=== PATIENT | female | born 1965 | race Caucasian/White ===

== ENCOUNTER 2024-01-02 13:35 | Emergency (ER) | payer BC, SELFPAY ==
[2024-01-02 13:59] VITALS: BP 130/76
[2024-01-02 14:20] LABS: % Eosinophils 1.9 % (0-6); % Immature Granulocytes 0.5 % (0-0.5); % Lymphocytes 29.3 % (20.5-51.1); % Monocytes 10.5 % (1.7-9.3); % Neutrophils 56.8 % (42.2-75.2); Absolute Basophils 0.1 10^3/uL (0-0.2); Absolute Eosinophils 0.2 10^3/uL (0-0.7); Absolute Lymphocytes 2.3 10^3/uL (1.2-3.4); Absolute Monocytes 0.8 10^3/uL (0.1-0.6); Absolute Neutrophils 4.4 10^3/uL (1.4-6.5); Hematocrit 41.3 % (37.0-47.0); Hemoglobin 13.6 g/dL (12.0-16.0); Mean Corp Hgb Conc. 32.9 g/dL (33.0-37.0); Mean Corpuscular Hgb 27.9 pg (27.0-31.0); Mean Corpuscular Volume 84.6 fL (81.0-99.0); Mean Platelet Volume 10.9 fL (7.4-10.4); Nucleated Red Blood Cells % 0 %; Platelet Count 246 10^3/uL (130-400); Red Blood Cell Count 4.88 10^6/uL (4.20-5.40); Red Cell Dist. Width 14.6 % (11.5-14.5); White Blood Cell Count 7.8 10^3/uL (4.8-10.8)
[2024-01-02 14:41] LABS: ALT (SGPT) 19 U/L (0-35); AST (SGOT) 31 U/L (14-36); Albumin 4.4 g/dl (3.5-5.0); Alkaline Phosphatase 97 U/L (38-126); Blood Urea Nitrogen 22 mg/dl (7-17); Calcium 9.9 mg/dl (8.4-10.2); Carbon Dioxide 24 mmol/L (22-30); Chloride 109 mmol/L (98-107); Glucose 91 mg/dl (70-99); Potassium 5.1 mmol/L (3.5-5.1); Sodium 141 mmol/L (135-145); Total Bilirubin 0.8 mg/dl (0.2-1.3); Total Protein 7.7 g/dl (6.3-8.2); eGFR > 60.00
[2024-01-02 14:47] LABS: Troponin I < 0.012 ng/ml
[2024-01-02 15:42] VITALS: BMI 33.8
[2024-01-02 15:52] VITALS: BP 133/65
--- NOTE | 2024-01-02 15:56 | ED.GENMED ---
History of Present Illness
General
Chief Complaint: Dizziness
Source: patient
Exam Limitations: none
Time Seen by Provider: 01/02/24 15:20
Travel History
Have you had any contact with someone who has COVID-19?: No
Do you have any symptoms of coronavirus? Fever > 100 degrees, chills, cough, shortness of breath, sore throat, loss of taste or smell, muscle aches, or headache?: No
History of Present Illness
History of Present Illness:
Patient has had chronic vertigo issues. However some disequilibrium frequently since October that is slightly different. It occurs frequently 3-4 times per week. Nonpositional. No other neurologic symptoms. But she is primarily here today
because she has been having ongoing intermittent chest pain with radiation to the back into the jaw. That is not exertional. Today's episode started this morning this. Persistent throughout the day. No shortness of breath or diaphoresis. No
other usual headache. No other neurologic symptoms.
Past History
Past History
ED Past Medical History: Fibromyalgia, Hypothyroidism, Psychiatric (depression) and Other (migraines-gets monthly injs)
ED Past Surgical History: Gynecological and Orthopedic
Social History
Tobacco: Non-smoker
Personal:
Review of Systems
Review of Systems
All Other Systems: Not applicable
Constitutional: Denies fever
Respiratory: Reports no symptoms
ABD/GI: Reports no symptoms
Phy Exam
Physical Exam
Physical Exam:
GENERAL: Alert and oriented in no apparent distress
EYE: Orbits normal.
NECK: Supple, no carotid bruit.
ENT: Pharynx without erythema. Right TM clear
CARDIAC: Regular rate and rhythm without any obvious murmurs.
LUNGS: Clear breath sounds,normal
ABDOMEN: Soft, without focal tenderness or distention
NEUROLOGICAL: Alert and oriented , speech normal. Cranial nerves II through XII intact. [id number] normal. No drift. Gait normal. Negative Romberg.
SKIN: Warm and dry, no rash or lesion, no discoloration, skin intact.
MUSCULOSKELETAL: No edema,no deformity.Good color
PSYCH: Normal and appropriate interaction.
Course
Orders/Labs/Results
Orders:
Orders
01/02/24 14:03
ECG [Electrocardiogram (*1)] Urgent
Reason for Study: Vertigo / Dizzy
EKG- Treatment ONCE
01/02/24 14:12
Complete Blood Count/With Diff Urgent
Comprehensive Metabolic Panel Urgent
Troponin I Urgent
01/02/24 15:33
CT Head W/o Iv Contrast Urgent
Comment:
Reason For Exam: dizziness
Cardiac Monitoring- Treatment ONCE
IV Insert/Care/Rem.- Treatment PRN
IV Insert/Care/Rem.- Treatment PRN
01/02/24 15:34
CT Chest Angio W/wo Iv Contras Urgent
Comment:
Reason For Exam: cp to back
01/02/24 15:48
Lipase Urgent
Troponin I Urgent
01/02/24 18:43
US Abdomen Complete/Upper Urgent
Comment:
Reason For Exam: Upper abdominal chest pain to the back. Elevated
Abnormal Lab Results
01/02/24 01/02/24
14:12 15:48
MCHC 32.9 L g/dL
(33.0-37.0)
RDW 14.6 H %
(11.5-14.5)
MPV 10.9 H fL
(7.4-10.4)
Absolute Monos (auto) 0.8 H 10^3/uL
(0.1-0.6)
Monocytes % 10.5 H %
(1.7-9.3)
Chloride 109 H mmol/L
(98-107)
BUN 22 H mg/dl
(7-17)
Lipase 375 H U/L
(23-300)
01/02/24 14:12
01/02/24 14:12
Vital Signs
Initial and Last Documented VS:
Initial Vital Signs
Temp Pulse Resp BP Pulse Ox
98 F 69 18 130/76 97
01/02/24 13:59 01/02/24 13:59 01/02/24 13:59 01/02/24 13:59 01/02/24 13:59
Last Documented Vital Signs
Temp Pulse Resp BP Pulse Ox
98 F 55 13 139/82 97
01/02/24 13:59 01/02/24 16:30 01/02/24 16:30 01/02/24 17:34 01/02/24 18:30
MDM/Problems Addressed
Differential Diagnosis Includes:
Patient with 2 seemingly independent complaints. Dizziness has been going on for months. None positional. No other neurologic symptoms with this. Neurologic exam is perfectly normal. I will get a CT plain. Cannot justify stat MRI at this time.
As for the chest pain to the back. Warrants CT of the chest to rule out dissection. Cardiac workup. Doubt cardiac with continual symptoms not exertional component minimal risk factors. Because of the length of her symptoms and prolonged
symptoms all day do not feel she needs repeat cardiac testing if the first set is negative
*Radiology
Radiology exam reviewed: radiology read reviewed (CT head negative. CT angiography with stable splenic aneurysm. Ultrasound negative)
*Pulse Oximetry
Patient hypoxic: no
*EKG
Interpreted by ED Provider?: Yes
Interpretation: normal
Comparison EKG: no changes
Heart Rate: 63
Rate: normal
Rhythm: sinus
[place]: normal axis
Interval: normal interval
QRS Pattern: normal QRS
Ischemia: no ischemia
*Critical Care Note
Total Time (30-74mins, 75-104mins- exclusive of procedures): Not Applicable
Data Reviewed
Review of Other/Old Records Reveals: Labs and Testing
Update Note
Update Note:
Patient is remained stable and nontoxic. Her dizziness/vertigo has been going on for months. Neurologic exam is normal. Stable for discharge to follow-up. Chest pain is not exertional continuous since 4 AM with a negative cardiac workup.
Splenic aneurysm is incidental. As for the mild lipase elevation probably from her previous recent medication. However this can be followed as an outpatient.
ED Attending Note
-
Portions of this chart may have been created with voice recognition software.� Occasional wrong word or��sound alike� substitutions may have occurred due to the inherent limitations of voice recognition software.
Discharge Plan
Departure
Patient Disposition: Home (Routine Discharge)
Date of Disposition: 01/02/24
Time of Disposition: 20:16
Patient with high blood pressure during this ER visit?: Yes
Discharge Problem:
Chest pain, Dizziness, Incidental splenic aneurysm, Mild lipase elevation
Instructions: Chest Pain (DC), Dizziness, BLOOD PRESSURE
Prescriptions:
No Action
venlafaxine [Effexor XR] 150 MG capsule,extended release 24hr
150 mg PO DAILY
multivitamin 1 EACH capsule
1 ea PO DAILY
cholecalciferol (vitamin D3) [Vitamin D3] 1,000 UNIT capsule
1,000 unit PO DAILY
pregabalin 75 MG capsule
150 mg PO DAILY
azithromycin 250 MG tablet
250 mg PO DAILY Qty: 4 0RF
Referrals:
Miller Wise MD [Active] - Next open appointment
Froy Aguirre DO [Family Provider] - Follow up in 2-3 days
Activity Restrictions/Additional Instructions:
Follow-up with the vascular surgeon for the splenic aneurysm
Also recommend repeating your lipase to make sure it continues to drift down. This can be followed up with your primary physician
Interventions
Interventions:
*Risk Screen - Suicide Last Done: 01/02/24 13:59
*General Assessment Last Done: 01/02/24 13:59
*Neglect/Abuse Screening Last Done: 01/02/24 13:59
ED- Fall Risk Assessment Last Done: 01/02/24 18:39
*ED COVID-19 Vaccine History Last Done: 01/02/24 15:53
ED- Neurological Assessment Last Done: 01/02/24 18:39
ED- Cardiac Assessment Last Done: 01/02/24 18:41
ED Swallowing Screen Last Done: 01/02/24 18:39
Discharge Date and Time
Print Language: SINHALA
[2024-01-02 16:00] VITALS: BP 133/94
[2024-01-02 16:10] LABS: Lipase 375 U/L (23-300)
[2024-01-02 16:23] LABS: Troponin I < 0.012 ng/ml
[2024-01-02 17:34] VITALS: BP 139/82
== END 2024-01-02 20:27 | disposition home or self-care (01) ==
LOC: EMR 13:35
PROVIDERS: Emergency Medicine; EMERGENCY PHYSICIAN Emergency Medicine; FAMILY PHYSICIAN Internal Medicine
DX: R42 Dizziness and giddiness (principal); R07.89 Other chest pain; R68.84 Jaw pain; R74.8 Abnormal levels of other serum enzymes; R03.0 Elevated blood-pressure reading, without diagnosis of hypertension; I72.8 Aneurysm of other specified arteries; E03.9 Hypothyroidism, unspecified; F32.A Depression, unspecified; G43.909 Migraine, unspecified, not intractable, without status migrainosus
CPT/HCPCS: 99285; 70450; 71275; 76700; 80053; 83690; 84484; 85025; 93005; Q9967

== ENCOUNTER 2024-03-08 00:03 | Emergency (ER) | payer BC, SELFPAY ==
[2024-03-08 00:03] VITALS: BMI 36.5
[2024-03-08 00:12] VITALS: BP 146/78
[2024-03-08 00:47] LABS: % Basophils 0.8 % (0-2); % Eosinophils 2.8 % (0-6); % Immature Granulocytes 0.4 % (0-0.5); % Lymphocytes 38.1 % (20.5-51.1); % Monocytes 8.6 % (1.7-9.3); % Neutrophils 49.3 % (42.2-75.2); Absolute Basophils 0.1 10^3/uL (0-0.2); Absolute Eosinophils 0.2 10^3/uL (0-0.7); Absolute Monocytes 0.7 10^3/uL (0.1-0.6); Absolute Neutrophils 3.9 10^3/uL (1.4-6.5); Hematocrit 38.6 % (37.0-47.0); Hemoglobin 12.7 g/dL (12.0-16.0); Mean Corp Hgb Conc. 32.9 g/dL (33.0-37.0); Mean Corpuscular Hgb 28.1 pg (27.0-31.0); Mean Corpuscular Volume 85.4 fL (81.0-99.0); Mean Platelet Volume 10.8 fL (7.4-10.4); Nucleated Red Blood Cells % 0 %; Platelet Count 215 10^3/uL (130-400); Red Blood Cell Count 4.52 10^6/uL (4.20-5.40); Red Cell Dist. Width 15.9 % (11.5-14.5); White Blood Cell Count 7.9 10^3/uL (4.8-10.8)
[2024-03-08 01:04] LABS: ALT (SGPT) 15 U/L (0-35); AST (SGOT) 22 U/L (14-36); Albumin 3.9 g/dl (3.5-5.0); Alkaline Phosphatase 91 U/L (38-126); Blood Urea Nitrogen 20 mg/dl (7-17); Calcium 9.5 mg/dl (8.4-10.2); Carbon Dioxide 27 mmol/L (22-30); Chloride 109 mmol/L (98-107); Glucose 104 mg/dl (70-99); Potassium 4.5 mmol/L (3.5-5.1); Sodium 141 mmol/L (135-145); Total Bilirubin 0.4 mg/dl (0.2-1.3); Total Protein 6.8 g/dl (6.3-8.2); eGFR > 60.00
[2024-03-08 04:00] VITALS: BP 134/73
[2024-03-08 05:36] LABS: Urine Albumin Negative (Neg - Trace); Urine Bilirubin Negative (Negative); Urine Character Clear (Clear); Urine Color Yellow; Urine Glucose Negative (Negative); Urine Ketone Negative (Negative); Urine Leukocyte Negative (Negative); Urine Nitrite Negative (Negative); Urine Occult Blood Negative (Negative); Urine Urobilinogen Negative (Neg - 1+)
[2024-03-08] MEDS: TORADOL 30 MG IM (06:36)
[2024-03-08 06:39] VITALS: BP 118/96
[2024-03-08] MEDS: PERCOCET 5/325 1 TABLET PO (07:30)
[2024-03-08] MEDS: ZOFRAN ODT (ORALLY DISINTEGRATING) 4 MG PO (07:31)
[2024-03-08 08:29] VITALS: BP 134/92
--- NOTE | 2024-03-08 09:17 | ED.GENMED ---
History of Present Illness
General
Chief Complaint: Abdominal Pain
Source: patient
Exam Limitations: none
Time Seen by Provider: 03/08/24 03:37
Nursing documentation reviewed up to this point in time: agreed with
Travel History
Have you had any contact with someone who has COVID-19?: No
Do you have any symptoms of coronavirus? Fever > 100 degrees, chills, cough, shortness of breath, sore throat, loss of taste or smell, muscle aches, or headache?: No
History of Present Illness
History of Present Illness:
58-year-old female with past medical history of hypothyroidism, migraines who presents to the emergency room for evaluation of right flank pain. Patient reports onset of symptoms Friday and they have been intermittent since that time. She reports
a sharp pain in the right flank/lateral lower abdomen. No clear triggering or relieving factors noted. She denies any associated nausea or vomiting. Denies any constipation or diarrhea. She has not noticed any urinary issues. She denies any
vaginal bleeding or discharge. She denies similar symptoms in the past. She denies any injury or strain or overuse. She has a history of prior hysterectomy.
Past History
Past History
ED Past Medical History: Fibromyalgia, Hypothyroidism, Psychiatric (depression) and Other (migraines-gets monthly injs)
ED Past Surgical History: Gynecological and Orthopedic
Social History
Tobacco: Non-smoker
Personal:
Review of Systems
Review of Systems
All Other Systems: ROS reviewed and negative except as documented in HPI and ROS
Constitutional: Denies fever or chills
EENT: Denies sore throat or runny nose
Respiratory: Denies cough or trouble breathing
Cardiac: Denies chest pain or palpitations
ABD/GI: Reports abdominal pain; Denies nausea, vomiting, diarrhea or constipated
: Reports flank pain; Denies dysuria or frequency
Musculoskeletal: Denies neck pain
Neurological: Denies dizzy or headache
Phy Exam
Physical Exam
Physical Exam:
General: Awake, alert, oriented x3; no acute distress
Head: Normocephalic, atraumatic
Eyes: Conjunctiva normal, sclera anicteric
Throat: Airway intact, handling secretions
Neck: Trachea midline, supple without meningismus
Lungs: Clear to auscultation bilaterally, no wheezing, rales, rhonchi
Heart: Regular rate and rhythm, no murmurs, gallops, or rubs
Abd: Soft, non distended, minimally tender in the right lateral abdomen
Back: Some tenderness in the right lumbar region but no CVA tenderness and no midline thoracic or lumbar tenderness
Neuro: Cranial nerves grossly intact, speech fluid
Skin: no rash
Extremities: No edema in extremities, equal pulses in all extremities
Scores
Heart Failure Risk
Heart Failure Risk Score: Not Applicable
Heart Score for Chest Pain Patients
STEMI patient?: Not applicable
Withdrawal Assessment of Alcohol
Withdrawal Assessment Completed?: Not applicable
Course
Orders/Labs/Results
Orders:
Orders
03/08/24 00:29
CMP [Comprehensive Metabolic Panel] Urgent
Complete Blood Count/With Diff Urgent
03/08/24 04:19
CT Abd/pel Without Iv Or Oral Urgent
Comment:
Reason For Exam: right flank pain
03/08/24 04:41
Urinalysis Reflex To Culture Urgent
Date Specimen was Collected: 03/08/24
Time Specimen was Collected: 04:39
03/08/24 06:30
Ketorolac [Toradol] 30 mg IM NOW STA
03/08/24 07:19
Oxycodone/Acetaminophen [Percocet 5/325] 1 tablet PO NOW STA
03/08/24 07:29
Ondansetron Orally Disint [Zofran Odt (Orally Disintegrating)] 4 mg .ROUTE .[facility]
03/08/24 07:31
Ondansetron Orally Disint [Zofran Odt (Orally Disintegrating)] 4 mg PO NOW STA
Abnormal Lab Results
03/08/24
00:29
MCHC 32.9 L g/dL
(33.0-37.0)
RDW 15.9 H %
(11.5-14.5)
MPV 10.8 H fL
(7.4-10.4)
Absolute Monos (auto) 0.7 H 10^3/uL
(0.1-0.6)
Chloride 109 H mmol/L
(98-107)
BUN 20 H mg/dl
(7-17)
Glucose 104 H mg/dl
(70-99)
03/08/24 00:29
03/08/24 00:29
Vital Signs
Initial and Last Documented VS:
Initial Vital Signs
Temp Pulse Resp BP Pulse Ox
36.7 C 80 22 146/78 97
03/08/24 00:12 03/08/24 00:12 03/08/24 00:12 03/08/24 00:12 03/08/24 00:12
Last Documented Vital Signs
Temp Pulse Resp BP Pulse Ox
36.6 C 62 18 134/92 97
03/08/24 08:29 03/08/24 08:29 03/08/24 08:29 03/08/24 08:29 03/08/24 08:29
MDM/Problems Addressed
Differential Diagnosis Includes:
Nephrolithiasis, UTI/pyelonephritis, ovarian cyst, appendicitis, cholelithiasis, muscular strain
MDM/Problems Addressed:
58-year-old female with history as documented presents for intermittent right flank/abdominal pain for the past few days. No triggering or relieving factors noted. She is not having significant pain at time of my assessment. Vital signs normal.
Exam as above. Plan to check labs including a CBC and a CMP. Will check urinalysis. Will send for CT of the abdomen pelvis. Will treat pain. Will monitor closely reassess after the above.
Labs reviewed: CBC unremarkable, CMP no clinically significant abnormalities. Urinalysis negative for infection. CT of the abdomen pelvis shows no acute intra-abdominal pathology�no obstructing kidney stones. Gallbladder appears unremarkable.
Appendix appears normal. Clinical reassessment patient now starting to have some pain�will provide additional meds. She has minimal abdominal tenderness pain is really more located in the flank and symptoms are intermittent which I think goes
against an acute infectious process. I wonder if this may be more of an oblique/muscular strain. CT was a noncontrast CT which can be somewhat limited for certain pathology. I had a long discussion with the patient about possible diagnoses and
the limits of CT scan. Offered to repeat CT scan here with contrast versus trial of pain medications and watchful waiting over the next few days. Patient feels comfortable with discharge with strict return precautions and short-term pain
management�advised that if her symptoms are worsening or if they are not improving she should return for consideration of contrast-enhanced scan. All questions answered.
*Radiology
Radiology exam reviewed: radiology read reviewed
*Pulse Oximetry
Patient hypoxic: no
*Critical Care Note
Total Time (30-74mins, 75-104mins- exclusive of procedures): Not Applicable
Data Reviewed
Review of Other/Old Records Reveals: Labs and Records
Source: patient and records
Further Testing Considered But Not Given:
Repeat CT scan enhanced with contrast was considered as above
ED Attending Note
-
Portions of this chart may have been created with voice recognition software.� Occasional wrong word or��sound alike� substitutions may have occurred due to the inherent limitations of voice recognition software.
Discharge Plan
Departure
Patient Disposition: Home (Routine Discharge)
Date of Disposition: 03/08/24
Time of Disposition: 07:19
Patient with high blood pressure during this ER visit?: No
Discharge Problem:
Right flank pain
Instructions: Flank Pain (DC)
Prescriptions:
New
oxycodone-acetaminophen [Endocet] 5-325 mg tablet
1 tab PO Q8H PRN (Reason: Pain) Qty: 10 0RF
No Action
venlafaxine [Effexor XR] 150 MG capsule,extended release 24hr
150 mg PO DAILY
multivitamin 1 EACH capsule
1 ea PO DAILY
cholecalciferol (vitamin D3) [Vitamin D3] 1,000 UNIT capsule
1,000 unit PO DAILY
pregabalin 75 MG capsule
150 mg PO DAILY
azithromycin 250 MG tablet
250 mg PO DAILY Qty: 4 0RF
Referrals:
Froy Aguirre DO [Family Provider] - Follow up in 2-3 days
Activity Restrictions/Additional Instructions:
Thank you for visiting the Emergency Department at [place].
1. Please schedule a follow up appointment as directed. Call first thing tomorrow morning to make an appointment.
2. If indicated, please take your medications as instructed and indicated on discharge paperwork.
3. If any of your symptoms do not improve, or persist, or become more severe within 6-12 hours, please return to the emergency department for further care.
4. Please return to the emergency department if you develop a headache, neck pain/stiffness, fever greater than 100.4F, chest pain, shortness of breath, persistent nausea, vomiting, slurred speech, difficulty walking, numbness/tingling, weakness,
signs of infection or any other symptoms that are worrisome to you.
Please call [phone] if you have any questions.
Interventions
Interventions:
*Risk Screen - Suicide Last Done: 03/08/24 00:12
*General Assessment Last Done: 03/08/24 03:48
*Neglect/Abuse Screening Last Done: 03/08/24 00:12
*ED COVID-19 Vaccine History Last Done: 03/08/24 03:48
*Nursing Disposition Last Done: 03/08/24 08:29
XN-Llqwrg-Xxnhchyitt Assessment Last Done: 03/08/24 03:50
Discharge Date and Time
Discharge Date/Time: 03/08/24 08:31
Print Language: PERUVIAN
== END 2024-03-08 08:31 | disposition home or self-care (01) ==
LOC: EMR 00:03
PROVIDERS: EMERGENCY PHYSICIAN Emergency Medicine; FAMILY PHYSICIAN Internal Medicine
DX: R10.31 Right lower quadrant pain (principal); E03.9 Hypothyroidism, unspecified; G43.909 Migraine, unspecified, not intractable, without status migrainosus; M79.7 Fibromyalgia; F32.A Depression, unspecified; Z88.5 Allergy status to narcotic agent; Z88.2 Allergy status to sulfonamides; Z88.8 Allergy status to other drugs, medicaments and biological substances
CPT/HCPCS: 99284; 96372; 74176; 80053; 81003; 85025

== ENCOUNTER → 2024-03-25 13:13 | Outpatient (REF) | payer BC, SELFPAY | LOC: HWRAD 13:13 | PROVIDERS: ATTENDING PHYSICIAN Internal Medicine; REFERRING PHYSICIAN Surgery Vascular Surgery | DX: R10.31 Right lower quadrant pain (principal) | CPT/HCPCS: 74178; Q9967 ==

== ENCOUNTER → 2024-04-21 20:21 | Outpatient (REF) | payer BC, SELFPAY | LOC: MRI 3T 20:21 | PROVIDERS: ATTENDING PHYSICIAN Specialist; FAMILY PHYSICIAN Internal Medicine | DX: R42 Dizziness and giddiness (principal) | CPT/HCPCS: 70553; A9575 ==

== ENCOUNTER 2024-06-24 06:06 | Day surgery (SDC) | payer BC, SELFPAY ==
[2024-06-04 13:53] VITALS: BMI 35.1
[2024-06-04 14:35] LABS: Hematocrit 40.6 % (37.0-47.0); Hemoglobin 13.7 g/dL (12.0-16.0); Mean Corp Hgb Conc. 33.7 g/dL (33.0-37.0); Mean Corpuscular Hgb 28.1 pg (27.0-31.0); Mean Corpuscular Volume 83.4 fL (81.0-99.0); Mean Platelet Volume 11.1 fL (7.4-10.4); Platelet Count 252 10^3/uL (130-400); Red Blood Cell Count 4.87 10^6/uL (4.20-5.40); Red Cell Dist. Width 14.2 % (11.5-14.5); White Blood Cell Count 7.4 10^3/uL (4.8-10.8)
[2024-06-04 14:57] LABS: ALT (SGPT) 16 U/L (0-35); AST (SGOT) 25 U/L (14-36); Albumin 4.4 g/dl (3.5-5.0); Alkaline Phosphatase 103 U/L (38-126); Blood Urea Nitrogen 20 mg/dl (7-17); Calcium 9.8 mg/dl (8.4-10.2); Carbon Dioxide 27 mmol/L (22-30); Chloride 103 mmol/L (98-107); Estimated Creatinine Clearance 76 ml/min; Glucose 81 mg/dl (70-99); Potassium 4.4 mmol/L (3.5-5.1); Sodium 141 mmol/L (135-145); Total Bilirubin 0.8 mg/dl (0.2-1.3); Total Protein 7.5 g/dl (6.3-8.2); eGFR > 60.00
[2024-06-05 13:31] LABS: Glycohemoglobin (HgbA1c) 5.5 % (4.0-5.6)
--- NOTE | 2024-06-11 09:47 | VNURNOTE ---
Patient is scheduled for an elective TKA on 06/24/24- she is a same day patient. Spoke with patient prior to surgery. Introduced role of [facility] Liaison.
Patient reports that she lives with her in a [facility] story [facility].
There are 3 steps to enter. She plans on staying on the first floor. There is a powder room on the medical data entry clerk and recliner and bedroom. She currently functions independently. She has a cane, Anti-embolism pumps, raised toilet seat and will be
picking up a cushion and rolling walker within a few days.
She has never had [facility] services.
PCP is Dr Aguirre.
Pharm is [facility] [address] [facility]
Discussed orthopedic program and post surgical plans.
Reviewed that she will have VN services initially and will then start outpatient PT on 06/28.
Patient selects [facility] for home care needs and will go to Out [facility].
Patient is in agreement with plan and states that her will be home with her.
Instructed to bring rolling walker day of surgery.
[2024-06-18 10:27] VITALS: BMI 35.1
[2024-06-24] VITALS (15 sets, daily range): BP systolic 85–157; BP diastolic 50–77; PULSE 81; O2SAT 95; BMI 35.1
[2024-06-24] MEDS: NORMOSOL-R/PLASMALYTE-A 1000 IV (08:22)
[2024-06-24] MEDS: MOBIC 15 MG PO (08:23)
[2024-06-24] MEDS: SUBLIMAZE 25 MCG IV (11:42)
[2024-06-24] MEDS: ZOFRAN 4 MG IV (13:22)
[2024-06-24] MEDS: ROXICODONE 5 MG PO (13:23)
== END 2024-06-24 14:38 | disposition home or self-care (01) ==
LOC: SDS 06:06
PROVIDERS: ATTENDING PHYSICIAN Orthopaedic Surgery; FAMILY PHYSICIAN Internal Medicine; REFERRING PHYSICIAN Internal Medicine
DX: M17.11 Unilateral primary osteoarthritis, right knee (principal)
CPT/HCPCS: 27447; C1776; 36415; 73560; 80053; 83036; 85027; 87070; 97116; 97162

== ENCOUNTER → 2024-11-26 07:21 | Outpatient (REF) | payer BC, SELFPAY ==
[2024-11-26 09:40] LABS: Blood Urea Nitrogen 21 mg/dl (7-17); Calcium 9.5 mg/dl (8.4-10.2); Carbon Dioxide 26 mmol/L (22-30); Chloride 103 mmol/L (98-107); Glucose 89 mg/dl (70-99); Potassium 4.4 mmol/L (3.5-5.1); Sodium 140 mmol/L (135-145); eGFR > 60.00
== END ==
LOC: HWLAB 07:21
PROVIDERS: ATTENDING PHYSICIAN Surgery Vascular Surgery; FAMILY PHYSICIAN Internal Medicine
DX: I72.8 Aneurysm of other specified arteries (principal)
CPT/HCPCS: 36415; 80048

== ENCOUNTER → 2024-12-17 08:54 | Outpatient (REF) | payer BC, SELFPAY | LOC: RAD 08:54 | PROVIDERS: ATTENDING PHYSICIAN Surgery Vascular Surgery; FAMILY PHYSICIAN Internal Medicine | DX: I72.8 Aneurysm of other specified arteries (principal) | CPT/HCPCS: 74174; Q9967 ==

== ENCOUNTER → 2025-03-01 07:58 | Outpatient (REF) | payer BC, SELFPAY | LOC: HWRAD 07:58 | PROVIDERS: ATTENDING PHYSICIAN Physician Assistant; FAMILY PHYSICIAN Internal Medicine | DX: M25.561 Pain in right knee (principal); Z96.651 Presence of right artificial knee joint | CPT/HCPCS: 93971 ==

== ENCOUNTER 2025-06-10 14:25 | Emergency (ER) | payer BC, SELFPAY ==
[2025-06-10 14:29] VITALS: BP 140/91
--- NOTE | 2025-06-10 15:28 | ED.GENMED ---
Addendum entered and electronically signed by Meena Kurtz PA-C 06/13/25 14:42:
2:41 PM: Urine culture results received which grew > 100,000 CFU of E. coli. Sensitive to Keflex which patient was discharged with prescription for. No further action needed.
Original Note:
History of Present Illness
General
Chief Complaint: Vaginal Bleeding
Source: patient and spouse
Exam Limitations: none
Time Seen by Provider: 06/10/25 15:26
Nursing documentation reviewed up to this point in time: agreed with
History of Present Illness
History of Present Illness:
Note:
CHIEF COMPLAINT(S)
- Hematuria (blood in urine)
- Back pain
- Dysuria (painful urination)
- Headache and dizziness
HISTORY OF PRESENT ILLNESS
The patient is a 59-year-old female presenting with the onset of hematuria beginning this morning, characterized by visible blood and clotting during urination. The patient reports associated bilateral back pain and dysuria. She experiences pain
similar to menstrual cramps, accompanied by headaches and dizziness. The symptoms are described as starting this morning and persist throughout the day. The pain does not discriminate much between sides, although it slightly favors the left.
PAST MEDICAL AND SURIGICAL HISTORY
- The patient had a hysterectomy approximately ten years ago.
- Reports a history of suprapubic catheter use.
CHRONIC MEDICAL CONDITIONS SIGNIFICANTLY AFFECTING CARE
- Supraventricular tachycardia
MEDICATIONS
- The patient is currently taking a statin and propranolol for supraventricular tachycardia.
REVIEW OF SYSTEMS
- Urinary: Presence of blood in urine, pain during urination.
- Musculoskeletal: Bilateral back pain.
- Neurological: Headaches, dizziness.
PHYSICAL EXAM
General: Alert, no acute distress.
Skin: Warm, dry.
Head: Normocephalic, atraumatic.
Neck: Supple, trachea midline.
Eye, Ears, Nose, Mouth, and Throat: Oral mucosa moist.
Cardiovascular: Normal peripheral perfusion, no edema.
Respiratory: Respirations are non-labored.
Gastrointestinal: Abdomen nondistended, bilateral cva tenderness, mild suprapubic tenderness
Back: Normal range of motion, normal alignment.
Musculoskeletal: Normal range of motion, normal strength.
Neurological: Alert and oriented to person, place, time, and situation. No focal neurological deficit observed.
Psychiatric: Cooperative, appropriate mood & affect.
PROBLEM LIST
Acute:
- Hematuria
- Dysuria
- Headache and dizziness
- Bilateral back pain
Chronic:
- Supraventricular tachycardia
PLAN
- Perform a bladder scan to assess for urinary retention.
- Obtain blood tests to evaluate potential causes of hematuria.
- Consider a computed tomography (CT) scan for further investigation of back pain and hematuria.
- Evaluate for possible cystitis and consider empirical antibiotic therapy if indicated.
DIFFERENTIAL DIAGNOSIS
The Differential Diagnosis includes, in no particular order and is not limited to:
- Urinary Tract Infection (cystitis)
- Urolithiasis (kidney stones)
- Hemorrhagic cystitis
- Pyelonephritis
- Bladder cancer
- Interstitial cystitis
- Glomerulonephritis
- Renal cell carcinoma
- Overactive bladder
- Structural abnormality of the urinary tract
SUMMARY OF ENCOUNTER
The patient, a 59-year-old female, presented to the emergency department with the onset of hematuria, characterized by visible blood and clotting during urination, along with associated bilateral back pain, dysuria, headaches, and dizziness. These
symptoms began this morning and persisted throughout the day. Given the presentation, a pelvic CT scan was performed revealing findings consistent with cystitis, diverticulosis, and a splenic artery aneurysm. Cystitis was identified as the primary
issue and treated with antibiotics.
DISPOSITION
Discharge home.
ASSESSMENT
Neurotic cystitis.
PLAN
Administer Rocephin and prescribe cephalexin for the management of cystitis. The patient should follow up with Dr. Abarca in urology for ongoing care.
INDEPENDENT REVIEW OF LABS AND INTERPRETATION OF TESTS
My independent CT scan interpretation revealed findings consistent with cystitis, diverticulosis, and a splenic artery aneurysm.
PATIENT EDUCATION AND COUNSELING
The patient was educated about cystitis, its symptoms, and the importance of completing the full course of prescribed antibiotics. Emphasis was placed on monitoring symptoms and following up with a urology specialist for comprehensive management.
FOLLOW-UP INSTRUCTIONS
The patient is advised to schedule a follow-up appointment with Dr. Abarca in urology promptly to monitor the condition and ensure effective management.
MEDICATION RECONCILIATION
Prescription for cephalexin was provided for cystitis management.
MEDICAL DECISION MAKING
- Number and Complexity of Problems Addressed: Chronic conditions affecting care include supraventricular tachycardia. Differential diagnosis considered included urinary tract infection (cystitis), urolithiasis, hemorrhagic cystitis, pyelonephritis,
bladder cancer, interstitial cystitis, glomerulonephritis, renal cell carcinoma, overactive bladder, and structural abnormality of the urinary tract.
- Data:
- Category 1: My independent interpretation of the pelvic CT scan revealed cystitis, diverticulosis, and a splenic artery aneurysm.
- Risk: Prescription medication was prescribed for cystitis, and the consideration of admission/observation was discussed but not needed.
DIAGNOSIS
-Hemorrhagic cystitis
- Diverticulosis (ICD-10: K57.30)
- Splenic artery aneurysm (ICD-10: I72.8)
Past History
Past History
ED Past Medical History: Fibromyalgia, Hypothyroidism, Psychiatric (depression) and Other (migraines-gets monthly injs)
ED Past Surgical History: Gynecological and Orthopedic
Social History
Tobacco: Non-smoker
Personal:
Phy Exam
Physical Exam
Physical Exam:
.
Course
Orders/Labs/Results
Orders:
Orders
06/10/25 15:41
IV Insert/Care/Rem.- Treatment PRN
06/10/25 15:44
CT Abd/pelvis W Iv Cont Urgent
Comment:
Reason For Exam: bilateral flank pain, hematuria
06/10/25 15:55
Complete Blood Count/With Diff Urgent
Comprehensive Metabolic Panel Urgent
Lipase Urgent
06/10/25 16:49
Urinalysis Reflex To Culture Urgent
Date Specimen was Collected: 06/10/25
Time Specimen was Collected: 16:47
Urine Microscopic Reflex Cult Urgent
Urine Culture Urgent
VIVIANE Source: U
Specimen Description:
Date Specimen was Collected: 06/10/25
Time Specimen was Collected: 16:47
06/10/25 17:07
Acetaminophen [Tylenol] 650 mg .ROUTE .STK-MED ONE
06/10/25 17:12
Acetaminophen [Tylenol] 650 mg PO NOW STA
06/10/25 17:51
CefTRIAXone [Rocephin] 1,000 mg IV NOW STA
06/10/25 18:20
Phenazopyridine HCl [Pyridium] 100 mg PO NOW STA
Abnormal Lab Results
06/10/25 06/10/25
15:55 16:49
RDW 15.2 H %
(11.5-14.5)
Absolute Neuts (auto) 7.1 H 10^3/uL
(1.4-6.5)
Absolute Monos (auto) 0.7 H 10^3/uL
(0.1-0.6)
Neutrophils % 76.5 H %
(42.2-75.2)
Lymphocytes % 13.9 L %
(20.5-51.1)
Urine Ketones 1+ A
(Negative)
Ur Occult Blood Reflex 4+ A
(Negative)
Leukocyte Esterase Rfl 2+ A
(Negative)
Urine RBC >100 A /HPF
(0-2)
Urine WBC (Reflex) 16-20 A /HPF
(0-5)
Urine Bacteria (Reflex) Moderate A
(Negative)
Urine Albumin (Reflex) 4+ A
(Neg - Trace)
06/10/25 15:55
06/10/25 15:55
Vital Signs
Initial and Last Documented VS:
Initial Vital Signs
Temp Pulse Resp BP Pulse Ox
98.1 F 93 18 140/91 99
06/10/25 14:29 06/10/25 14:29 06/10/25 14:29 06/10/25 14:29 06/10/25 14:29
Last Documented Vital Signs
Temp Pulse Resp BP Pulse Ox
98.1 F 93 18 129/82 97
06/10/25 14:29 06/10/25 14:29 06/10/25 14:29 06/10/25 18:00 06/10/25 18:15
*Pulse Oximetry
SaO2: 99
Oxygen Mode of Delivery: Room air
Patient hypoxic: no
*Critical Care Note
Total Time (30-74mins, 75-104mins- exclusive of procedures): Not Applicable
ED Attending Note
-
Portions of this chart may have been created with voice recognition software.� Occasional wrong word or��sound alike� substitutions may have occurred due to the inherent limitations of voice recognition software.
Discharge Plan
Departure
Patient Disposition: Home (Routine Discharge)
Date of Disposition: 06/10/25
Time of Disposition: 18:04
Patient with high blood pressure during this ER visit?: No
Condition: Good
Discharge Problem:
Acute hemorrhagic cystitis
Instructions: Urinary tract infection in adults - ED (DC)
Prescriptions:
New
cephalexin 500 mg capsule
500 mg PO BID 7 Days Qty: 14 0RF
No Action
cholecalciferol (vitamin D3) [Vitamin D3] 1,000 UNIT capsule
1,000 unit PO DAILY
ondansetron HCl 4 mg Tablet
4 mg PO Q6H PRN (Reason: Postop Nausea)
Patient Comments:
*
Rx Instructions:
for post op
dexamethasone 4 mg Tablet
4 mg PO Q12H
Patient Comments:
for post op
mupirocin 2 % Ointment
1 applic TOPICAL BID
Patient Comments:
*
Rx Instructions:
applied this am 06/24/24
celecoxib [Celebrex] 100 mg Capsule
100 mg PO BID
Patient Comments:
for post op
oxycodone 5 mg Tablet
5 - 10 mg PO Q6H PRN (Reason: Postop pain)
atorvastatin 20 mg Tablet
20 mg PO QPM
omeprazole 40 mg Capsule,Delayed Release(Dr/Ec)
40 mg PO PRN PRN (Reason: reflux)
levothyroxine [Synthroid] 75 mcg Tablet
75 mcg PO DAILY
buspirone 7.5 mg Tablet
7.5 mg PO DAILY
Zyrtec 10 mg Capsule
10 mg PO DAILY PRN (Reason: allergy symptoms)
Ubrelvy 100 mg Tablet
100 mg PO PRN PRN (Reason: migraine)
Wegovy 1 mg/0.5 mL Pen Injector
1 mg SC QWEEK
multivitamin Tablet
1 tab PO DAILY
valacyclovir 1 gram Tablet
1,000 mg PO PRN PRN (Reason: break out)
estradiol 0.01 % (0.1 mg/gram) Cream
1 appful VAGINAL PRN PRN (Reason: vaginal itching)
propranolol
10 mg PO BID
mupirocin 2 % Ointment
1 applic intranasal SDS-ONCEPRN PRN (Reason: if pt did not self-administer) 2 Days 0RF
Patient Comments:
applied this am 06/24/24
Referrals:
Juan Rincon MD [Active, Urology] - Call in 1-3 days for appt
Froy Aguirre DO [Family Provider, Internal Medicine]
Interventions
Interventions:
*Risk Screen - Suicide Last Done: 06/10/25 16:53
*General Assessment Last Done: 06/10/25 16:53
*Neglect/Abuse Screening Last Done: 06/10/25 16:53
*ED- Fall Risk Assessment Last Done: 06/10/25 16:53
*ED COVID-19 Vaccine History Last Done: 06/10/25 16:53
*Nursing Disposition Last Done: 06/10/25 18:31
ED-Female Genitourinary Assessment Last Done: 06/10/25 16:55
Discharge Date and Time
Discharge Date/Time: 06/10/25 18:31
Print Language: DUTCH
[2025-06-10 16:08] LABS: Hematocrit 39.1 % (37.0-47.0); Hemoglobin 13.0 g/dL (12.0-16.0); Mean Corp Hgb Conc. 33.2 g/dL (33.0-37.0); Mean Corpuscular Volume 83.2 fL (81.0-99.0); Nucleated Red Blood Cells % 0 %; Platelet Count 210 10^3/uL (130-400); Red Cell Dist. Width 15.2 % (11.5-14.5)
[2025-06-10 16:18] LABS: ALT (SGPT) 18 U/L (0-35); AST (SGOT) 22 U/L (14-36); Albumin 4.2 g/dl (3.5-5.0); Alkaline Phosphatase 108 U/L (38-126); Blood Urea Nitrogen 13 mg/dl (7-17); Calcium 9.5 mg/dl (8.4-10.2); Carbon Dioxide 28 mmol/L (22-30); Chloride 106 mmol/L (98-107); Glucose 80 mg/dl (70-99); Lipase 122 U/L (23-300); Potassium 4.0 mmol/L (3.5-5.1); Sodium 138 mmol/L (135-145); Total Protein 7.4 g/dl (6.3-8.2); eGFR > 60.00
[2025-06-10 16:51] VITALS: BP 102/89
[2025-06-10 16:52] VITALS: BMI 33.0
[2025-06-10 17:00] VITALS: BP 98/67
[2025-06-10 17:01] LABS: Urine Character Bloody (Clear)
[2025-06-10] MEDS: TYLENOL 650 MG PO (17:12)
[2025-06-10 17:54] LABS: Urine Red Blood Cell >100 /HPF (0-2); Urine White Cell 16-20 /HPF (0-5)
[2025-06-10 18:00] VITALS: BP 129/82
[2025-06-10] MEDS: ROCEPHIN 1000 MG IV (18:26)
== END 2025-06-10 18:31 | disposition home or self-care (01) ==
LOC: EMR 14:25
PROVIDERS: EMERGENCY PHYSICIAN Emergency Medicine; FAMILY PHYSICIAN Internal Medicine
DX: N30.01 Acute cystitis with hematuria (principal); E03.9 Hypothyroidism, unspecified; I47.10 Supraventricular tachycardia, unspecified; I72.8 Aneurysm of other specified arteries; K57.30 Diverticulosis of large intestine without perforation or abscess without bleeding; M79.7 Fibromyalgia; Z90.710 Acquired absence of both cervix and uterus
CPT/HCPCS: 96374; 99284; 74177; 80053; 81003; 81015; 83690; 85025; 87077; 87086; 87186; Q9967